=== PATIENT | male | born 1990 | race Caucasian/White ===

== ENCOUNTER 2017-01-28 10:59 | Emergency (ER) | payer MEDICAID ==
[~2017-01-28] VITALS: Ht 172.7 cm; Wt 108.9 kg
[2017-01-28 11:00] VITALS: BP 120/74
[2017-01-28] MEDS ORDERED: PERCOCET 10-321 EAC1 PO (11:02)
[2017-01-28] MEDS ORDERED: Thiamine HCl 100 MG in D5W 55 ML IVPB SCH (11:15)
--- NOTE | 2017-01-28 11:17 | Emergency Room Report ---
History of Present Illness General Chief Complaint: Head Injury Source: Patient Present Illness HPI Patient presents with a syncopal episode. He's been drinking heavily. He's had syncopal episodes in the past. He hit the back of his head. He has a headache at this time. He drinks alcohol daily for the last 5 days. He was sober before that for 3 months. He denies suicidal ideation. Has been through rehab in the past. Abrasion on scalp. Brought by EMS with normal accucheck field. Pain in head 01/26, sharp and pounding, slight radiate to neck. No seizures, NVD, dysuria, chest pain, cough. No vomit blood, melena, abdominal pain. States tetanus UTD. When presented to rehab before - was too sick - jaundice. Medically stabilized then completed rehab. Allergies: Coded Allergies: No Known Allergies (Unverified , 01/28/17) Patient History Past Medical History: see triage record Social History: Reports: alcohol use, smoking Social History Narrative at home - currently unemployed - secures finances for production Reviewed Nursing Documentation: PMH: Agreed, PSxH: Agreed Review of Systems All Other Systems: negative except mentioned in HPI Physical Exam Vital Signs Date Time Temp Pulse Resp B/P Pulse Ox O2 Delivery O2 Flow Rate FiO2 01/28/17 10:57 97.9 108 16 120/74 98 Room Air Sp02 EP Interpretation: reviewed, normal General Appearance: well appearing, no apparent distress, GCS 15 Head: normocephalic Eyes: bilateral eye PERRL, bilateral eye Scleral Injection, bilateral eye anticteric ENT: moist mucus membranes - no lingual macerations Neck: supple Respiratory: lungs clear, normal breath sounds Cardiovascular #1: regular rate, rhythm Cardiovascular #2: 2+ radial (R) Gastrointestinal: normal inspection, normal bowel sounds, non tender, no mass, non-distended Musculoskeletal: back normal, gait/station normal, normal range of motion Neurologic: alert, oriented x3, motor strength/tone normal, DTRs symmetric, sensory intact, speech normal, other - nystagmus, slight ataxia Psychiatric: no suicidal/homicidal ideation, depressed affect Skin: normal inspection, warm/dry, abrasions - R occiput Medical Decision Making Diagnostic Impression: Primary Impression: Acute head injury Qualified Codes: S09.90XA - Unspecified injury of head, initial encounter Additional Impressions: Alcohol intoxication Qualified Codes: F10.929 - Alcohol use, unspecified with intoxication, unspecified Possible syncope ER Course Patient with syncope, head injury and alcohol ingestion. DDx; seizure, alcohol excess, arrhythmia, vasovagal amongst others. Emergent evaluation with CT, EKG , CXR and labs. Treatment with IV hydration, thiamine, acetamenophen and observation. EKG, CXR and CT unremarkable. Labs with elevated BA and LFTs. At one point patient stated he was going into DTs. Calm and not tremulous. Reassured that with short h/o abuse and this level of alcohol, not DTs. Patient improved and ambulatory. Still denies SI/HI. Family here and want to take to rehab. Patient improved. Patient stable for outpatient observation and treatment Laboratory Tests Test 01/28/17 11:15 White Blood Count 9.7 K/UL (4.8-10.8) Red Blood Count 4.70 M/UL (4.70-6.10) Hemoglobin 12.8 G/DL (14.2-18.0) L Hematocrit 40.1 % (42.0-52.0) L Mean Corpuscular Volume 85 FL (80-99) Mean Corpuscular Hemoglobin 27.2 PG (27.0-31.0) Mean Corpuscular Hemoglobin Concent 31.9 G/DL (32.0-36.0) L Red Cell Distribution Width 13.9 % (11.6-14.8) Platelet Count 240 K/UL (150-450) Mean Platelet Volume 5.3 FL (6.5-10.1) L Neutrophils (%) (Auto) 78.2 % (45.0-75.0) H Lymphocytes (%) (Auto) 15.6 % (20.0-45.0) L Monocytes (%) (Auto) 5.5 % (1.0-10.0) Eosinophils (%) (Auto) 0.2 % (0.0-3.0) Basophils (%) (Auto) 0.5 % (0.0-2.0) Urine Color Pale yellow Urine Appearance Clear Urine pH 6 (4.5-8.0) Urine Specific [place] 1.005 (1.005-1.035) Urine Protein Negative (NEGATIVE) Urine Glucose (UA) Negative (NEGATIVE) Urine Ketones Negative (NEGATIVE) Urine Occult Blood Negative (NEGATIVE) Urine Nitrite Negative (NEGATIVE) Urine Bilirubin Negative (NEGATIVE) Urine Urobilinogen Normal MG/DL (0.0-1.0) Urine Leukocyte Esterase Negative (NEGATIVE) Sodium Level 142 mEQ/L (135-145) Potassium Level 4.0 mEQ/L (3.4-4.9) Chloride Level 102 mEQ/L (98-107) Carbon Dioxide Level 19 mEQ/L (20-30) L Anion Gap 21 (5-15) H Blood Urea Nitrogen 6 mg/dL (7-23) L Creatinine 0.6 mg/dL (0.7-1.2) L Estimate Glomerular Filtration Rate > 60 mL/min (>60) Glucose Level 117 mg/dL (74-106) H Calcium Level 8.6 mg/dL (8.6-10.2) Total Bilirubin 0.7 mg/dL (0.0-1.2) Aspartate Amino Transferase (AST) 100 U/L (5-40) H Alanine Aminotransferase (ALT) 60 U/L (3-41) H Alkaline Phosphatase 216 U/L (40-129) H Total Protein 7.7 g/dL (6.6-8.7) Albumin 4.3 g/dL (3.5-5.2) Globulin 3.4 g/dL Albumin/Globulin Ratio 1.2 (1.0-2.7) Salicylates Level < 1 mg/dL (10-30) L Urine Opiates Screen Negative (NEGATIVE) Acetaminophen Level < 10 ug/mL (10-30) L Urine Barbiturates Screen Negative (NEGATIVE) Phencyclidine (PCP) Screen Negative (NEGATIVE) Urine Amphetamines Screen Negative (NEGATIVE) Urine Benzodiazepines Screen Negative (NEGATIVE) Urine Cocaine Screen Negative (NEGATIVE) Urine Marijuana (THC) Screen Negative (NEGATIVE) Serum Alcohol 460 mg/dL EKG Diagnostic Results Rate: tachycardiac Rhythm: NSR ST Segments: no acute changes Rhythm Strip Diag. Results EP Interpretation: yes Rhythm: no PVC's, no ectopy, other - ST Chest X-Ray Diagnostic Results Chest X-Ray Diagnostic Results : Chest X-Ray Ordered: Yes # of Views/Limited/Complete: 1 View Indication: Other Interpretation: no consolidation, no effusion, no pneumothorax, no acute cardiopulmonary disease Impression: No acute disease Interpreting ER Provider: Electronic signiture Jacques Peralta MD CT/MRI/US Diagnostic Results CT/MRI/US Diagnostic Results : Imaging Test Ordered: head Impression no bleed fx Last Vital Signs Date Time Temp Pulse Resp B/P Pulse Ox O2 Delivery O2 Flow Rate FiO2 01/28/17 15:05 119 18 132/75 98 Room Air 01/28/17 15:03 97.9 Status: improved Disposition: HOME, SELF-CARE Condition: Improved Jacques Peralta M.D. Jan 28, 2017 11:17
[2017-01-28] MEDS ORDERED: Thiamine HCl 100mg/ml Inj ONE (11:27)
[2017-01-28 11:35] LABS: BASOPHILS % (AUTO) 0.5 % (0.0-2.0); EOSINOPHILS % (AUTO) 0.2 % (0.0-3.0); LYMPHOCYTES % (AUTO) 15.6 % (20.0-45.0); MEAN CORPUSCULAR HEMOGLOBIN 27.2 PG (27.0-31.0); MEAN CORPUSCULAR HGB CONC 31.9 G/DL (32.0-36.0); MEAN CORPUSCULAR VOLUME 85 FL (80-99); MEAN PLATELET VOLUME 5.3 FL (6.5-10.1); MONOCYTES % (AUTO) 5.5 % (1.0-10.0); NEUTROPHILS % (AUTO) 78.2 % (45.0-75.0); PLATELET COUNT 240 K/UL (150-450); RED CELL DISTRIBUTION WIDTH 13.9 % (11.6-14.8); WHITE BLOOD COUNT 9.7 K/UL (4.8-10.8)
[2017-01-28 11:38] LABS: APPEARANCE,URINE CLEAR; KETONES,URINE NEGATIVE (NEGATIVE); LEUKOCYTE ESTERASE ,URINE NEGATIVE (NEGATIVE); NITRITE,URINE NEGATIVE (NEGATIVE); PH,URINE 6 (4.5-8.0); PROTEIN,URINE NEGATIVE (NEGATIVE); UROBILINOGEN,URINE NORMAL MG/DL (0.0-1.0)
[2017-01-28 12:02] VITALS: BP 126/80
[2017-01-28 12:05] LABS: ACETAMINOPHEN < 10 ug/mL (10-30); ALANINE AMINOTRANSFERASE 60 U/L (3-41); ALBUMIN/GLOBULIN RATIO 1.2 (1.0-2.7); ANION GAP 21 (5-15); ASPARTATE AMINO TRANSFERASE 100 U/L (5-40); CALCIUM 8.6 mg/dL (8.6-10.2); CARBON DIOXIDE 19 mEQ/L (20-30); CHLORIDE 102 mEQ/L (98-107); CREATININE 0.6 mg/dL (0.7-1.2); GLOMERULAR FILTRATION RATE > 60 mL/min (>60); HEMOLYSIS 36; SODIUM 142 mEQ/L (135-145); TOTAL PROTEIN 7.7 g/dL (6.6-8.7)
[2017-01-28 12:10] LABS: ALCOHOL 460 mg/dL
[2017-01-28 13:00] VITALS: BP 122/66
--- NOTE | 2017-01-28 13:35 | Diagnostic Imaging Report ---
Indication: TRAUMA, syncopal episode Technique: Continuous helical CT scanning of the head was performed without intravenous contrast material. Axial and coronal 5 mm sections were generated. Radiation dose was minimized using automated exposure control Dose: Total Dose Length Product - DLP [address] Dose Index - CTDIvol(s) 70.38 mGy. Comparison: Findings: The ventricular system is normal in size and configuration. There is no shift of midline structures. No abnormal extra-axial fluid collections are noted. There is no evidence of intracerebral bleeding. No other abnormal high or low density areas are noted within the brain. There is a left parietal scalp hematoma. There is a right sphenoid sinus air-fluid level. Impression: Negative for acute intracranial bleed or mass effect Left high parietal scalp hematoma This agrees with the preliminary interpretation provided overnight by Dr. Byrd The CT scanner at [facility] is accredited by the [employer] and the scans are performed using protocols designed to limit radiation exposure to as low as reasonably achievable to attain images of sufficient resolution adequate for diagnostic evaluation.
--- NOTE | 2017-01-28 14:48 | Diagnostic Imaging Report ---
Indication: Shortness of breath Technique: One view of the chest Comparison: none Findings: Lungs and pleural spaces are clear. Heart size is normal. Impression: No acute process
[2017-01-28 15:05] VITALS: BP 132/75
--- NOTE | 2017-02-02 19:07 | Cardiology Report ---
APPROVED REPORT EKG Measurement Heart [id number] Sinus tachycardia Prolonged QT Abnormal ECG
== END 2017-01-28 15:05 | disposition home or self-care (01) ==
LOC: EDBD 10:59 → EMR 12:07
DX: S00.03XA Contusion of scalp, initial encounter (principal); W19.XXXA Unspecified fall, initial encounter; Y92.89 Other specified places as the place of occurrence of the external cause; F10.129 Alcohol abuse with intoxication, unspecified; F17.200 Nicotine dependence, unspecified, uncomplicated; R55 Syncope and collapse
CPT/HCPCS: 36415; 70450; 71010; 80053; 80300; 80329; 81003; 85025; 93005; 96360; 96374; 96375